=== PATIENT | female | born 1945 | race Two or more races ===

== ENCOUNTER 2021-12-27 16:38 | Emergency (ER) | payer OTHER ==
[~2021-12-27] VITALS: Ht 162.6 cm; Wt 50.0 kg
[2021-12-27 19:55] VITALS: BP 132/65
== END 2021-12-27 20:05 | disposition home or self-care (01) ==
LOC: ER 16:38 → EDBD 16:38 → ER 20:05
DX: S01.01XA Laceration without foreign body of scalp, initial encounter (principal); K21.9 Gastro-esophageal reflux disease without esophagitis; E78.5 Hyperlipidemia, unspecified; Z88.2 Allergy status to sulfonamides; Z98.51 Tubal ligation status; W18.09XA Striking against other object with subsequent fall, initial encounter; Y93.89 Activity, other specified; Y92.89 Other specified places as the place of occurrence of the external cause; Y99.8 Other external cause status
CPT/HCPCS: 12004; 70450; 72125; 72131